=== PATIENT | female | born 1940 | race Caucasian/White ===

== ENCOUNTER 2020-06-02 23:24 | Emergency (ER) | payer MEDICARE, BC, SELFPAY ==
--- NOTE | ~2020-06-02 | XR_ITS ---
EXAMINATION: XR wrist LT 2V EXAM DATE: 06/03/2020 01:15 INDICATION: Postreduction. TECHNIQUE: Frontal and lateral projections of the left wrist. Comparison is made to prior examinatio n from earlier same date. FINDINGS: There is been some interval reduction in the posterior angulation and displacement of the c omminuted left distal radial metaphyseal fracture into joints. Ulnar styloid base avulsion appears un changed. A splint has been applied. IMPRESSION: 1. Status post splinting, partial reduction left distal radial metaphyseal fractures. 2. Ulnar styloid base fracture. Reviewed, dictated and finalized at location A. IMPRESSION: 1. Status post splinting, partial reduction left distal radial metaphyseal fra ctures. 2. Ulnar styloid base fracture.
--- NOTE | ~2020-06-02 | XR_ITS ---
EXAMINATION: XR wrist LT min 3V EXAM DATE: 06/03/2020 00:06 INDICATION: Fall, left wrist pain. TECHNIQUE: Frontal, oblique and lateral projections left wrist. There are no prior studies for claude lopez. FINDINGS: Acute comminuted closed posttraumatic fractures of the left radial distal metaphysis exten ding into the distal radial ulnar and the radiocarpal joint. There is about 40 degrees of posterior a ngulation, and mild posterior displacement. There is acute closed posttraumatic ulnar styloid base av ulsion fracture without appreciable displacement. Carpal bones are unremarkable. IMPRESSION: 1. Left distal radial metaphyseal comminuted fracture into joints. 2. Ulnar styloid base fracture. Reviewed, dictated and finalized at location A.
[2020-06-02 23:26] VITALS: BP 146/98; PULSE 95; RESP 19; TEMP 36.6; O2SAT 100
--- NOTE | 2020-06-02 23:45 | ED.UPPEXIN ---
HPI - Extremity Injury (Upper) General Chief Complaint: Extremity Injury, Upper Stated Complaint: fall Time Seen by Provider: 06/02/20 23:32 History of Present Illness HPI narrative: She was looking up to see a meteor shower when she stepped back and tripped over something. She fell and caught herself on her left hand. She had instant pain and swelling in the left wrist. Limited movement. Sensation in tact. No wounds. No additional pain or injury. She did not strike her head. Related Data Home Medications Medication Instructions Recorded Confirmed ergocalciferol (vitamin D2) PO DAILY 06/03/20 olmesartan-hydrochlorothiazide tablet PO DAILY 06/03/20 simvastatin mg PO DAILY 06/03/20 Allergies Allergy/AdvReac Type Severity Reaction Status Date / Time Sulfa (Sulfonamide Allergy Unknown Itching Verified 06/03/20 00:36 Antibiotics) Review of Systems Review of Systems: All systems reviewed & are unremarkable except as noted in HPI and below PMFSH Family History Family History Other Family history of cardiovascular disease Family history of elevated blood lipids Family history of malignant neoplasm Hypertension Social History Social History Smoking status: Never smoker Alcohol intake: current Gender identity (if verbalized by the patient): Female Exam Const: General: healthy appearing, no acute distress and alert Orientation/consciousness: patient oriented x3 HENMT: Head: normal to inspection Cardio: Other: 2+ left radial pulse. Brisk cappilary refill Skin: General skin exam: normal color Rashes: no rashes Wounds: no wounds Neuro: General: patient oriented x3 and moves all extremities Speech: normal speech Extrem: Other: deformity and swelling of left wrist. Course Vital Signs Vital signs: Vital Signs Temperature 36.6 C 06/02/20 23:26 Pulse Rate 95 06/02/20 23:26 Respiratory Rate 19 06/02/20 23:26 Blood Pressure 146/98 H 06/02/20 23:26 Pulse Oximetry 100 06/02/20 23:26 Temperature 36.6 C 06/02/20 23:26 Pulse Rate 71 06/03/20 02:00 Respiratory Rate 16 06/03/20 02:00 Blood Pressure 137/79 06/03/20 02:00 Pulse Oximetry 98 06/03/20 02:00 Procedures Orthopedic Fracture Reduction Fracture #1: Fracture Reduction date: 06/03/20 Side: left Fracture Reduction Location: radius Analgesia: hematoma block Pre-Procedure Neuro Vascular Exam: normal Technique: direct manipulation Post Reduction X-rays Demonstrate: acceptable reduction Post-reduction neuro exam: intact Post-reduction vascular exam: intact Splint Applied: Yes Patient Tolerated Procedure: well MDM - Extremity Injury (Upper) MDM Narrative Medical decision making narrative: She has comminuted fracture of the distal radius and ulna. Attempted reduction with improved alignment, but still significant shortening. She will need ortho follow-up. Discharge Plan Discharge Clinical Impression: Fracture of wrist, closed Qualifiers: Encounter type: initial encounter Laterality: left Qualified Code(s): S62.102A - Fracture of unspecified carpal bone, left wrist, initial encounter for closed fracture Patient Disposition: Home, Self-Care Condition: Stable Instructions: Wrist Fracture in Adults (ED) Prescriptions: New hydrocodone-acetaminophen [[place]] 5-325 mg tablet 1 tablet PO Q4H PRN (Reason: pain) Qty: 10 RF: 0 No Action simvastatin 20 mg tablet PO DAILY RF: 0 ergocalciferol (vitamin D2) 1,250 mcg (50,000 unit) capsule PO DAILY RF: 0 olmesartan-hydrochlorothiazide 20-12.5 mg tablet PO DAILY RF: 0 Follow-up/Referrals: Jovan Gee MD [Physician] - 1 Week Jorge A,OMAR Torres [Primary Care Provider] - Discharge Date/Time: 06/03/20 02:05
[2020-06-03] MEDS: LIDOCAINE HCL 1% LOCAL INJ 20 ML VIAL 10 ML INFILTRATE (00:34)
[2020-06-03] MEDS: MORPHINE SULFATE 10 MG/ML AMP 4 MG IM (00:46)
[2020-06-03 02:00] VITALS: BP 137/79; PULSE 71; RESP 16; O2SAT 98
== END 2020-06-03 02:05 | disposition home or self-care (01) ==
PROVIDERS: Emergency Provider Emergency Medicine; PCP Nurse Practitioner Adult Health
DX: S59.292A Other physeal fracture of lower end of radius, left arm, initial encounter for closed fracture (principal); S52.612A Displaced fracture of left ulna styloid process, initial encounter for closed fracture; W01.0XXA Fall on same level from slipping, tripping and stumbling without subsequent striking against object, initial encounter
CPT/HCPCS: 25605; 73100; 73110; 96372; 99285; A4565; J2270

== ENCOUNTER 2023-12-20 14:45 | Emergency (ER) | payer MEDICARE, BC, SELFPAY ==
[2023-12-20 14:54] VITALS: BP 141/75; PULSE 94; RESP 16; TEMP 36.7; O2SAT 100
--- NOTE | 2023-12-20 15:52 | ED.FEMALEGU ---
HPI - Female Genitourinary General Chief complaint: Urogenital-Female Stated complaint: UTI SYMPTOMS Time Seen by Provider: 12/20/23 15:29 Source: patient and RN notes reviewed Mode of arrival: ambulatory Limitations: no limitations History of Present Illness HPI Narrative: Patient presents today complaining of a 2 day history of fatigue and pain after urination. Denies hematuria, frequency, urgency, abdominal pain or back pain. She has been using cranberry juice without relief. No history of frequent UTIs. States her last UTI was approximately 20 years ago. Related Data Home Medications Medication Instructions Recorded Confirmed ergocalciferol (vitamin D2) 1,250 1,250 mcg PO DAILY 06/03/20 mcg (50,000 unit) capsule olmesartan 20 1 tablet PO DAILY 06/03/20 12/20/23 mg-hydrochlorothiazide 12.5 mg tablet semaglutide 7 mg tablet (Rybelsus) 7 mg PO DAILY 12/20/23 12/20/23 Allergies Allergy/AdvReac Type Severity Reaction Status Date / Time Sulfa (Sulfonamide Allergy Unknown Itching Verified 12/20/23 15:24 Antibiotics) Review of Systems Review of Systems: CONSTITUTIONAL: Denies body aches, fever, chills, or sweats.+ fatigue EYES: Denies visual changes, redness, or discharge. ENT: Denies rhinorrhea, congestion, sore throat, or otalgia. CARDIOVASCULAR: Denies chest pain, palpitations, or edema. RESPIRATORY: Denies cough or dyspnea. GASTROINTESTINAL: Denies abdominal pain, nausea, vomiting, or diarrhea. GENITOURINARY: Denies dysuria or hematuria.+ pain after urination SKIN: Denies rash, itching, or wounds. MUSCULOSKELETAL: Denies back pain, joint pain, or myalgia. NEUROLOGIC: Denies headache, numbness, tingling, or weakness. PSYCH: Denies depression or anxiety. [facility] Family History Family History Other Family history of cardiovascular disease Family history of elevated blood lipids Family history of malignant neoplasm Hypertension Social History Social History Smoking status: Never smoker Alcohol intake: current Gender identity (if verbalized by the patient): Female Comments At time of signature, I have reviewed and agree with nursing past medical, surgical, social and family history unless otherwise noted. Please see nursing chart for further information. There is no relevant family history pertinent to the presenting complaint Exam Narrative: GENERAL: Well-appearing, well-nourished, and in no acute distress. HEAD: Normocephalic, atraumatic. EYES: EOMI. No redness or drainage. Conjunctivae normal. ENT: Mucous membranes pink and moist. NECK: Normal AROM. CHEST: No respiratory distress. Clear to auscultation. HEART: Regular rate and rhythm. No murmur appreciated. ABDOMEN: Soft, nontender, nondistended, normal active bowel sounds. EXTREMITIES: Normal range of motion. No edema. SKIN: Warm, dry, no rash. Capillary refill normal. Normal skin turgor. NEURO: No focal deficits. Alert and oriented x3. Gait steady. PSYCH: Normal affect. No signs of depression or anxiety. Course Course Level of Care: Express Care Visit Vital Signs Vital signs: Vital Signs Temperature 98.1 F 12/20/23 14:54 Pulse Rate 94 12/20/23 14:54 Respiratory Rate 16 12/20/23 14:54 Blood Pressure 141/75 H 12/20/23 14:54 Pulse Oximetry 100 12/20/23 14:54 Oxygen Delivery Room Air 12/20/23 14:54 Temperature 98.1 F 12/20/23 14:54 Pulse Rate 94 12/20/23 14:54 Respiratory Rate 16 12/20/23 14:54 Blood Pressure 141/75 H 12/20/23 14:54 Pulse Oximetry 100 12/20/23 14:54 Oxygen Delivery Room Air 12/20/23 14:54 Reviewed MDM - Female Genitourinary MDM Narrative Medical decision making narrative: Urinalysis is consistent with UTI. Prescription for Keflex sent to pharmacy. Anticipatory guidance given. Differential Diagnosis Differential d
== END 2023-12-20 15:57 | disposition home or self-care (01) ==
PROVIDERS: Emergency Provider Nurse Practitioner; PCP Nurse Practitioner Adult Health
DX: N30.01 Acute cystitis with hematuria (principal); B96.89 Other specified bacterial agents as the cause of diseases classified elsewhere; I10 Essential (primary) hypertension; E11.9 Type 2 diabetes mellitus without complications
CPT/HCPCS: 81003; 87086; 87181; 99213; G0463

== ENCOUNTER 2024-11-02 14:22 | Emergency (ER) | payer MEDICARE, BC, SELFPAY ==
[2024-11-02 15:47] VITALS: BP 141/76; PULSE 94; RESP 16; TEMP 36.3; O2SAT 98
[2024-11-02 16:19] LABS: EDCOVIDSCREEN Negative (Negative); EDINFLUASCREEN Negative (Negative); EDINFLUBSCREEN Negative (Negative)
--- NOTE | 2024-11-02 16:32 | ED_ITS ---
HPI - URI/Sore Throat General Chief Complaint: Upper Respiratory Infection Stated Complaint: sore throat Time Seen by Provider: 11/02/24 16:22 Source: patient and RN notes reviewed Mode of arrival: ambulatory Limitations: no limitations History of Present Illness HPI Narrative: Patient presents today complaining of a scratchy throat, body aches, fatigue since yesterday. She finished a Z-Charly 3 days ago prescribed for cold symptoms by her PCP. Denies any recent fever, shortness of breath. She leaves on vacation in a couple of days and wants to make sure she does not have a sinus infection or need additional antibiotics. Related Data Home Medications ?Medication ?Instructions ?Recorded ?Confirmed ?Last Taken ?Type ergocalciferol (vitamin D2) 1,250 1,250 mcg PO DAILY 06/03/20 11/02/24 06/02/20 History mcg (50,000 unit) capsule Aspirin [facility] 01/22/24 07/25/24 Unknown History Calcium [facility] 01/22/24 07/25/24 Unknown History Fish Oil [facility] 01/22/24 07/25/24 Unknown History Allergies Allergy/AdvReac Type Severity Reaction Status Date / Time Sulfa (Sulfonamide Allergy Unknown Itching Verified 11/02/24 15:39 Antibiotics) Review of Systems Review of Systems: CONSTITUTIONAL: Denies fever, chills, or sweats.+ body aches, fatigue EYES: Denies visual changes, redness, or discharge. ENT: Denies rhinorrhea, congestion, sore throat, or otalgia.+ scratchy throat CARDIOVASCULAR: Denies chest pain, palpitations, or edema. RESPIRATORY: Denies cough or dyspnea. GASTROINTESTINAL: Denies abdominal pain, nausea, vomiting, or diarrhea. GENITOURINARY: Denies dysuria or hematuria. SKIN: Denies rash, itching, or wounds. MUSCULOSKELETAL: Denies back pain, joint pain, or myalgia. NEUROLOGIC: Denies headache, numbness, tingling, or weakness. PSYCH: Denies depression or anxiety. [facility] Family History Family History Father Heart disease Mother Hypertension Other Family history of cardiovascular disease Family history of elevated blood lipids Family history of malignant neoplasm Social History Social History Smoking status: Never smoker Alcohol intake: current Alcohol use details: Twice a month mixed drink Substance use type: does not use Lack of Transportation: No Lack of Food: Never True Current Housing: I Have Housing Concerned About Future Housing: No Difficulty Paying Gas/Electric Bills: No Difficulty Paying for Meds: No Currently Unemployed: No Education: High School Diploma/GED Living arrangements: with family Gender identity (if verbalized by the patient): Female Agree to blood products: Yes Comments At time of signature, I have reviewed and agree with nursing past medical, surgical, social and family history unless otherwise noted. Please see nursing chart for further information. There is no relevant family history pertinent to the presenting complaint Exam Narrative: GENERAL: Well-appearing, well-nourished, and in no acute distress. HEAD: Normocephalic, atraumatic. EYES: EOMI. No redness or drainage. Conjunctivae normal. ENT: Mucous membranes pink and moist. Nares clear. No rhinorrhea. TMs normal bilaterally. Throat normal. Uvula midline. NECK: Normal AROM. Supple. No lymphadenopathy. CHEST: No respiratory distress. Clear to auscultation. HEART: Regular rate and rhythm. No murmur appreciated. EXTREMITIES: Normal range of motion. No edema. SKIN: Warm, dry, no rash. Capillary refill normal. Normal skin turgor. NEURO: No focal deficits. Alert and oriented x3. Gait steady. PSYCH: Normal affect. No signs of depression or anxiety. Course Course Level of Care: Express Care Visit Vital Signs Vital signs: Vital Signs Temperature 97.4 F L 11/02/24 15:47 Pulse Rate 94 11/02/24 15:47 Respiratory Rate 16 11/02/24 15:47 Blood Pressure 141/76 H 11/02/24 15:47 Pulse Oximetry 98 11/02/24 15:47 Temperature 97.4 F L 11/02/24 15:47 Pulse Rate 94 11/02/24 15:47 Respiratory Rate 16 11/02/24 15:47 Blood Pressure 141/76 H 11/02/24 15:47 Pulse Oximetry 98 11/02/24 15:47 Reviewed MDM - URI/Sore Throat MDM Narrative Medical decision making narrative: Influenza and COVID negative. Symptoms likely viral in etiology. Discussed [id number] medication use and duration of illness. No prescription medications indicated at this time. Anticipatory guidance given. Differential Diagnosis Differential diagnosis: Likely upper respiratory infection, otitis media, sinusitis and viral infection Lab Data Attestation: I reviewed the patient's lab results. Labs: Lab Results 11/02/24 Range/Units 16:18 POC Influenza A Ag Negative (Negative) POC Influenza B Ag Negative (Negative) POC SARS CoV-2 Ag Negative (Negative) Critical Care Time Critical Care Time Critical Care Time: No Discharge Plan Discharge Clinical Impression: Viral infection Patient Disposition: Home, Self-Care Condition: Stable Instructions: Viral Syndrome (ED) Additional Instructions: Your influenza and COVID-19 tests are negative today. Your symptoms are likely due to a viral illness, which is not treated with antibiotics. Virus symptoms can last for up to 7-10days. Take Tylenol for pain or fever. Rest and stay hydrated. Follow up with your PCP in 7-9 days if symptoms are not improving. Go to the ER immediately if you develop shortness of breath, difficulty swallowing, or any other concerning symptoms. Your blood pressure was elevated above 120/80 today at Urgent Care. This puts you above the threshold for follow up. Please schedule a followup visit with your personal physician as soon as possible, for further evaluation and treatment. Even blood pressure exceeding 120/80 may indicate pre-hypertension. Patient Language: Khmer Prescriptions: No Action Aspirin [facility] Rx Instructions: Low dose QD Fish Oil [facility] Rx Instructions: 1000mg QD Calcium [facility] Rx Instructions: 1200mg 2 tablets QD ergocalciferol (vitamin D2) 1,250 mcg (50,000 unit) capsule 1,250 mcg PO DAILY simvastatin 20 mg tablet 20 mg PO DAILY Qty: 90 3RF olmesartan-hydrochlorothiazide 20-12.5 mg tablet See Rx Instructions .ROUTE .COMPLEX Qty: 90 0RF Dose Instruction: TAKE 1 TABLET BY MOUTH EVERY DAY Rx Instructions: TAKE 1 TABLET BY MOUTH EVERY DAY Mounjaro 2.5 mg/0.5 mL pen injector 2.5 mg subcut WEEKLY Qty: 2 1RF Rx Instructions: for 4 weeks Follow-up/Referrals: Melissa Jules APRN [Primary Care Provider] - Time of Disposition: 16:35
== END 2024-11-02 16:38 | disposition home or self-care (01) ==
PROVIDERS: Emergency Provider Nurse Practitioner; PCP Nurse Practitioner Adult Health
DX: B34.9 Viral infection, unspecified (principal); Z20.822 Contact with and (suspected) exposure to COVID-19
CPT/HCPCS: 87426; 87804; 99212; G0463

== ENCOUNTER 2024-11-19 11:26 | Outpatient (CLI) | payer MEDICARE, BC, SELFPAY ==
--- NOTE | ~2024-11-19 | XR_ITS ---
XR abdomen/kub 1V Ordering provider: Melissa Jules APRN History: . R39.9 - Unspecified symptoms and signs involving the jie... . Comparison: None. FINDINGS: BOWEL: Nonobstructive bowel gas pattern. ORGANOMEGALY: None. SIGNIFICANT PATHOLOGIC CALCIFICATIONS: None. OTHER: No free air is seen under the diaphragm. 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 Degenerative changes of the spine. Pubic symphysit is. IMPRESSION: NO ACUTE ABDOMINAL FINDINGS. Reviewed, dictated and finalized at location A. [facility]
[2024-11-19 19:42] LABS: Add Urine Microscopic? YES; Appearance Urine Clear (Clear); Bacteria Urine None Seen /hpf; Bilirubin Urine Negative (Negative); Blood Urine Negative (Negative); Color Urine Yellow (Yellow); Glucose Urine UA 1+ mg/dL (Negative); Ketones Urine Negative (Negative); Leukocyte Esterase Ur 2+ LEU/UL (Negative); Nitrate Urine Negative (Negative); Non Pathogenic Casts 0-2; Protein Urine Negative (Negative); RBC Urine 0-2 /hpf (0-2); Specific Grav Ur 1.013 (1.001-1.035); Squamous Epithelial Cell Urine None Seen /hpf (Few); Urobilinogen Urine 0.2 mg/dL (<2.0); WBC Urine 21-50 /hpf (0-3); pH Urine 6.5 (5.0-9.0)
== END 2024-11-19 11:27 | disposition home or self-care (01) ==
PROVIDERS: PCP Nurse Practitioner Adult Health; Visit Provider Nurse Practitioner Adult Health
DX: R39.9 Unspecified symptoms and signs involving the genitourinary system (principal)
CPT/HCPCS: 74018; 81001; 87086

== ENCOUNTER 2025-06-04 00:12 | Day surgery (SDC) | payer MEDICARE, BC, SELFPAY ==
[2025-05-27 13:27] VITALS: BMI 27.1
--- OUTSIDE RECORDS SUMMARY | 2025-06-04 00:14 | XMS_ITS | Data Portability ---
Author Organization [place] [facility], Main Office Address [address] [place] [address] Care Team Providers Care Sales Manager [place] Name Role Phone ERIN BRAVO Primary Care Provider [phone] ERIN BRAVO Referring Provider [phone] TARYN RAMOS Primary Care Provider [phone] TARYN RAMOS Referring Provider [phone] Assessment Encounter Date Assessment Date Assessment LastModified by Organization Details LastModified Time 05/19/2023 05/19/2023 HPI: 82-year-old female came in today for evaluation of her left lateral hip pain. She has been having symptoms for about 6 months. Her chief complaint is that she has pain in the lateral hip especially when she gets up from a seated position or if she tries lying on left side to sleep at night. When she is up walking flat level ground she is comfortable and has no symptoms well she is doing her normal daily activities. Patient had x-rays done of her left hip by her primary care doctor in June of last year which showed no arthritic changes in the hip. There is no spurring of the greater trochanter. X-rays look very normal. Physical exam: 82-year-old female very alert pleasant. She walks well without limp or Trendelenburg sag. Her left hip flexes to 120 externally rotates to 40 internally rotates to 20 without discomfort. She has moderate tenderness over the trochanteric bursa to palpation. She has good abduction strength in lateral position but pain with strength testing. No edema in lower extremities. 2+ dorsalis pedis pulse. Impression: 82-year-old female who has trochanteric bursitis/lateral hip pain syndrome left hip. His initial management I have recommended a course of formal physical therapy for hip bursitis protocol. I discussed with her that if she does not get satisfactory improvement from that then a cortisone injection into the lateral hip would be reasonable. We will set up therapy and see her back in a month for re-evaluation. If she is doing very well she can call and cancel. If she continues to have symptoms we can try cortisone injection at that time. 20 minutes was spent in treatment patient more than half of this in [id number] conversation [email or web address] Not available 05/19/2023 13:48:46 06/27/2023 06/27/2023 Mammogram due 09/2023. Shingrix from pharmacy Pt to schedule colonoscopy. Has polyps. Not available 06/27/2023 12:23:41 Plan of Treatment Reminders Order Date Submit Date Provider Last Modified By Organization Details Last Modified Time Details Appointments None recorded. Lab BMP, serum or plasma 2022 023 [facility] (Lab), [address] [place], [address], 3 14:12:26 glycohemog lobin, total, blood 2022 023 [facility] (Lab), [address] [place], [address], 3 14:25:43 lipid panel, serum 2022 023 [facility] (Lab), [address] [place], [address], 3 14:12:10 hepatic function panel, serum 2022 023 [facility] (Lab), [address] [place], [address], 14:12:21 Referral None recorded. Procedures None recorded. Surgeries None recorded. Imaging MAMMO, screening, digital, bilateral - *Please call pt tot schedule* 2022 023 [email or web address] Not available 12/27/202 3 08:58:50 Medication Orders None recorded. Patient TargetsNo targets recorded. Patient Instructions Encounter Date Encounter Id Patient Instructions Last Modified By Organization Details Last Modified Time 06/27/2023 [id number] Fu in 4 mo for check up htn, lipid, dm, osteoarthritis. Not available 06/27/2023 10:16:41 Reason for Referral None Reported. Results Created Date Observation Date Name Description Value Unit Range Abnormal Flag Note LastModifiedBy Organization Detail LastModifiedTime 02/16/2002/15/2023 urina lysis , dipst ick Leukocytes (reference range: negative otilia/ l) Negati ve Not Available [address], [address], 02/14/2023 12:10:45 02/16/2002/15/2023 urina lysis , dipst ick Nitrite (reference rage: negative mg/dl) negati ve Not Available [address], [address], 02/14/2023 12:10:45 02/16/2002/15/2023 urina lysis , dipst ick Urobilinogen (reference range: 0.2-1 mg/dl) 0.2 Not Available [address], [address], 02/14/2023 12:10:45 02/16/20 23 02/15/2023 urina lysis , dipst ick Protein (reference range: negative mg/dl) Negati ve Not Available [address], [address], 02/14/2023 12:10:45 02/16/20 23 02/15/2023 urina lysis , dipst ick pH (reference range: 5-7) 5.0 Not Available [address], [address], 02/14/2023 12:10:45 02/16/20 23 02/15/2023 urina lysis , dipst ick Blood (reference range: negative Elmer/ l) Negati ve Not Available [address], [address], 02/14/2023 12:10:45 02/16/20 23 02/15/2023 urina lysis , dipst ick Specific Hayden (reference range: 1.005-1.030) 1.015 Not Available [address], [address], 02/14/2023 12:10:45 02/16/20 23 02/15/2023 urina lysis , dipst ick Ketone (reference range: negative mg/dl) Negati ve Not Available [address], [address], 02/14/2023 12:10:45 02/16/20 23 02/15/2023 urina lysis , dipst ick Bilirubin (reference range: negative mg/dl) Negati ve Not Available [address], [address], 02/14/2023 12:10:45 02/16/20 23 02/15/2023 urina lysis , dipst ick Glucose (reference range: negative mg/dl) 2000+ Not Available [address], [address], 02/14/2023 12:10:45 02/16/20 23 02/15/2023 urina lysis , dipst ick Appearance Clear Not Available [address], [address], 02/14/2023 12:10:45 02/16/2002/15/2023 urina lysis , dipst ick Color Yellow Not Available formerly [facility] [address] [place] [address], [place], [address], 02/14/2023 12:10:45 02/25/20 23 02/24/2023 BASIC METAB OLIC PANEL sodium 138 mmol/ L 137-14 5 Not Available [facility] (Lab) [address] [place], [address], 02/24/2023 14:51:00 02/25/2002/24/2023 BASIC METAB OLIC PANEL potassium 4.4 mmol/ L 3.5-5. 1 Not Available [facility] (Lab) [address] [place], [address], 02/24/2023 14:51:00 02/25/20 23 02/24/2023 BASIC METAB OLIC PANEL chloride 99 mmol/ L 98-107 Not Available [facility] (Lab) [address] [place], [address], 02/24/2023 14:51:00 02/25/20 23 02/24/2023 BASIC METAB OLIC PANEL carbon dioxide 29 mmol/ L 22-30 Not Available [facility] (Lab) [address] [place], [address], 02/24/2023 14:51:00 02/25/20 23 02/24/2023 BASIC METAB OLIC PANEL anion gap 14.4 mmol/ L 14-22 Not Available [facility] (Lab) [address] [place], [address], 02/24/2023 14:51:00 02/25/20 23 02/24/2023 BASIC METAB OLIC PANEL glucose 151 mg/dL 70-99 high Not Available [facility] (Lab) [address] [place], [address], 02/24/2023 14:51:00 02/25/20 23 02/24/2023 BASIC METAB OLIC PANEL BUN 23 mg/dL 8-19 high Not Available [facility] (Lab) [address] [place], [address], 02/24/2023 14:51:00 02/25/20 23 02/24/2023 BASIC METAB OLIC PANEL creatinine 0.83 mg/dL 0.66-1 .25 Not Available [facility] (Lab) [address] [place], [address], 02/24/2023 14:51:00 02/25/20 23 02/24/2023 BASIC METAB OLIC PANEL GFR >60 Refer ence Range : [place] ge GFR Healt hy Adult : >60 mL/mi n/1.7 3 m2 Chron ic Kidne y Disea se: 15-60 mL/mi n/1.7 3 m2 Kidne y Failu re: <15/m L/min /1.73 m2 www.n iddk. nih.g ov The MDRD study equat ion has not been valid ated in child juvenal <18 years of age; pregn ant women ; the elder ly >85 years of age; or in some racia l or ethni c subgr oups, such as Tino nics. Outsi de the valid ated dianna eters , estim ated GFR is less accur ate, requi ring clini klever judgm ent on a case- by-ca se basis . Clini klever inter preta tion for other races and ages must be made by the clini eron. The MDRD study equat ion has not been valid ated for the evalu ation of serum creat inine relat ed to nutri lily l statu s or medic ation usage . For perso ns <18 years of age, a pedia tric GFR calcu lator is avail able on the [facility] websi te: https :[email or web address] palacios.o rg/pr ofess ional s/kdo qi/gf r_cal culat or Not Available [facility] (Lab) [address] [place], [address], 02/24/2023 14:51:00 02/25/20 23 02/24/2023 BASIC METAB OLIC PANEL calcium 10.0 mg/dL 8.4-10 .2 Not Available [facility] (Lab) [address] [place], [address], 02/24/2023 14:51:00 02/25/20 23 02/24/2023 HEPAT IC/LI ALESHA PANEL alkaline phosphatase 80 U/L 38-126 Not Available [facility] (Lab) [address] [place], [address], 02/24/2023 14:51:10 02/25/20 23 02/24/2023 HEPAT IC/LI ALESHA PANEL alanine aminotransfe rase 27 U/L 0-35 Not Available [facility] (Lab) [address] [place], [address], 02/24/2023 14:51:10 02/25/20 23 02/24/2023 HEPAT IC/LI ALESHA PANEL aspartate aminotransfe rase 30 U/L 15-37 Not Available [facility] (Lab) [address] [place], [address], 02/24/2023 14:51:10 02/25/20 23 02/24/2023 HEPAT IC/LI ALESHA PANEL bilirubin, total 1.10 mg/dL 0.20-1 .30 Not Available [facility] (Lab) [address] [place], [address], 02/24/2023 14:51:10 02/25/20 23 02/24/2023 HEPAT IC/LI ALESHA PANEL bilirubin, conjugated (direct) 0.00 mg/dL 0.00-0 .30 Not Available [facility] (Lab) [address] [place], [address], 02/24/2023 14:51:10 02/25/20 23 02/24/2023 HEPAT IC/LI ALESHA PANEL biliurubin,u ncong. (indirect) 0.60 mg/dL 0.00-1 .1 Not Available [facility] (Lab) [address] [place], [address], 02/24/2023 14:51:10 02/25/20 23 02/24/2023 HEPAT IC/LI ALESHA PANEL total protein 7.9 g/dL 6.3-8. 2 Not Available [facility] (Lab) [address] [place], [address], 02/24/2023 14:51:10 02/25/20 23 02/24/2023 HEPAT IC/LI ALESHA PANEL albumin 4.8 g/dL 3.0-4. 4 high Not Available [facility] (Lab) [address] [place], [address], 02/24/2023 14:51:10 02/25/20 23 02/24/2023 HEPAT IC/LI ALESHA PANEL globulin 3.1 g/dL 2.6-4. 2 Not Available [facility] (Lab) [address] [place], [address], 02/24/2023 14:51:10 02/25/20 23 02/24/2023 HEPAT IC/LI ALESHA PANEL A/G ratio 1.5 ratio 1.0-2. 0 Not Available [facility] (Lab) [address] [place], [address], 02/24/2023 14:51:10 02/25/20 23 02/24/2023 TEST NOT PERFO RMED test not performed SEE COMMEN T HA1C NOT PERFO RMED NO EDTA TUBE RECIE MINISTERIO. ISHMAEL Rosas COLLE CT A L AVEND ER TOP EDTA TUBE. IONOI ZED CALCI UM NOT PERFO RMED. ISHMAEL Rosas SEND A SEPRA TE SERUM TUBE AND LABEL IT DOO NOT OPEN Not Available [facility] (Lab) [address] [place], [address], 02/24/2023 21:06:04 03/02/20 23 03/02/2023 HEMOG LOBIN A1C HA1C 8.0 % 4.0-6. 0 high Diabe sahil Rhiannone virgil Crite shira: <5.7% Consi stent with absen ce of diabe sahil 5.7-6 .4% Consi stent with incre ased risk for diabe sahil (pred iabet es) >OR=6 .5% Consi stent with diabe sahil REFER ENCE: Diabe sahil Care 2016, 39(Wilkes ppl.1 ):s13 -s22 Not Available [facility] (Lab) [address] [place], [address], 03/02/2023 14:55:10 07/04/2007/04/2023 LIPID PANEL cholesterol 199 mg/dL 140-19 9 NIH CARLOS NSUS RECOM MENDA TION FOR MISSY STERO L: ADULT CHILD LOW RISK: <200 <170 BORDE RLINE : <200- 239 ----- HIGH RISK: >240 >200 Not Available [facility] (Lab) [address] [place], [address], 07/04/2023 14:12:10 07/04/2007/04/2023 LIPID PANEL triglyceride s 280 mg/dL 0-150 high NIH CARLOS NSUS REPOR T RECOM MENDA TION FOR TRIGL YCERI SARAH: ADULT CHILD LOW RISK: <150 ----- BODER LINE: 150-1 99 ----- HIGH RISK: >200 ----- Not Available [facility] (Lab) [address] [place], [address], 07/04/2023 14:12:10 07/04/2007/04/2023 LIPID PANEL HDL cholesterol 35 mg/dL 40- low Not Available [facility] (Lab) [address] [place], [address], 07/04/2023 14:12:10 07/04/2007/04/2023 LIPID PANEL LDL cholesterol, calculated 108 mg/dL 0-130 NIH CARLOS NSUS REPOR T RECOM MENDA TIONS FOR LDL: ADULT CHILD LOW RISK <130 <110 (OPTI MAL LDL) <100 ----- BORDE RLINE : 130-1 59 ----- HIGH RISK: >160 >130 A TRIGL YCERI DE RESUL T >400 INVAL IDATE S THE CALCU LATIO N FOR LDL FRACT IONAT ION - THE LDL RESUL T WILL NOT BE REPOR VALERIA. Not Available [facility] (Lab) [address] [place], [address], 07/04/2023 14:12:10 07/04/20 23 07/04/2023 HEPAT IC/LI ALESHA PANEL alkaline phosphatase 78 U/L 38-126 Not Available [facility] (Lab) [address] [place], [address], 07/04/2023 14:12:21 07/04/20 23 07/04/2023 HEPAT IC/LI ALESHA PANEL alanine aminotransfe rase 30 U/L 0-35 Not Available [facility] (Lab) [address] [place], [address], 07/04/2023 14:12:21 07/04/20 23 07/04/2023 HEPAT IC/LI ALESHA PANEL aspartate aminotransfe rase 28 U/L 15-37 Not Available [facility] (Lab) [address] [place], [address], 07/04/2023 14:12:21 07/04/20 23 07/04/2023 HEPAT IC/LI ALESHA PANEL bilirubin, total 0.90 mg/dL 0.20-1 .30 Not Available [facility] (Lab) [address] [place], [address], 07/04/2023 14:12:21 07/04/20 23 07/04/2023 HEPAT IC/LI ALESHA PANEL bilirubin, conjugated (direct) 0.00 mg/dL 0.00-0 .30 Not Available [facility] (Lab) [address] [place], [address], 07/04/2023 14:12:21 07/04/20 23 07/04/2023 HEPAT IC/LI ALESHA PANEL biliurubin,u ncong. (indirect) 0.70 mg/dL 0.00-1 .1 Not Available [facility] (Lab) [address] [place], [address], 07/04/2023 14:12:21 07/04/20 23 07/04/2023 HEPAT IC/LI ALESHA PANEL total protein 7.3 g/dL 6.3-8. 2 Not Available [facility] (Lab) [address] [place], [address], 07/04/2023 14:12:21 07/04/20 23 07/04/2023 HEPAT IC/LI ALESHA PANEL albumin 4.4 g/dL 3.0-4. 4 Not Available [facility] (Lab) [address] [place], [address], 07/04/2023 14:12:21 07/04/20 23 07/04/2023 HEPAT IC/LI ALESHA PANEL globulin 2.9 g/dL 2.6-4. 2 Not Available [facility] (Lab) [address] [place], [address], 07/04/2023 14:12:21 07/04/20 23 07/04/2023 HEPAT IC/LI ALESHA PANEL A/G ratio 1.5 ratio 1.0-2. 0 Not Available [facility] (Lab) [address] [place], [address], 07/04/2023 14:12:21 07/04/20 23 07/04/2023 BASIC METAB OLIC PANEL sodium 137 mmol/ L 137-14 5 Not Available [facility] (Lab) [address] [place], [address], 07/04/2023 14:12:25 07/04/20 23 07/04/2023 BASIC METAB OLIC PANEL potassium 4.0 mmol/ L 3.5-5. 1 Not Available [facility] (Lab) [address] [place], [address], 07/04/2023 14:12:25 07/04/20 23 07/04/2023 BASIC METAB OLIC PANEL chloride 99 mmol/ L 98-107 Not Available [facility] (Lab) [address] [place], [address], 07/04/2023 14:12:25 07/04/20 23 07/04/2023 BASIC METAB OLIC PANEL carbon dioxide 30 mmol/ L 22-30 Not Available [facility] (Lab) [address] [place], [address], 07/04/2023 14:12:25 07/04/20 23 07/04/2023 BASIC METAB OLIC PANEL anion gap 12.0 mmol/ L 14-22 low Not Available [facility] (Lab) [address] [place], [address], 07/04/2023 14:12:25 07/04/20 23 07/04/2023 BASIC METAB OLIC PANEL glucose 154 mg/dL 70-99 high Not Available [facility] (Lab) [address] [place], [address], 07/04/2023 14:12:25 07/04/20 23 07/04/2023 BASIC METAB OLIC PANEL BUN 22 mg/dL 8-19 high Not Available [facility] (Lab) [address] [place], [address], 07/04/2023 14:12:25 07/04/20 23 07/04/2023 BASIC METAB OLIC PANEL creatinine 0.70 mg/dL 0.66-1 .25 Not Available [facility] (Lab) [address] [place], [address], 07/04/2023 14:12:25 07/04/20 23 07/04/2023 BASIC METAB OLIC PANEL GFR >60 Refer ence Range : [place] ge GFR Healt hy Adult : >60 mL/mi n/1.7 3 m2 Chron ic Kidne y Disea se: 15-60 mL/mi n/1.7 3 m2 Kidne y Failu re: <15/m L/min /1.73 m2 www.n iddk. nih.g ov The MDRD study equat ion has not been valid ated in child juvenal <18 years of age; pregn ant women ; the elder ly >85 years of age; or in some racia l or ethni c subgr oups, such as Hispa nics. Outsi de the valid ated dianna eters , estim ated GFR is less accur ate, requi ring clini klever judgm ent on a case- by-ca se basis . Clini klever inter preta tion for other races and ages must be made by the clini eron. The MDRD study equat ion has not been valid ated for the evalu ation of serum creat inine relat ed to nutri lily l statu s or medic ation usage . For perso ns <18 years of age, a pedia tric GFR calcu lator is avail able on the [facility] websi te: https :[email or web address] w.ghazal palacios.o patty/pr huberess ional s/kdo qi/gf r_cal culat or Not Available [facility] (Lab) [address] [place], [address], 07/04/2023 14:12:25 07/04/2007/04/2023 BASIC METAB OLIC PANEL calcium 9.4 mg/dL 8.4-10 .2 Not Available [facility] (Lab) [address] [place], [address], 07/04/2023 14:12:25 07/04/20 23 07/04/2023 HEMOG LOBIN A1C HA1C 8.4 % 4.0-6. 0 high Diabe sahil Scree virgil Crite shira: <5.7% Consi stent with absen ce of diabe sahil 5.7-6 .4% Consi stent with incre ased risk for diabe sahil (pred iabet es) >OR=6 .5% Consi stent with diabe sahil REFER ENCE: Diabe sahil Care 2016, 39(Wilkes ppl.1 ):s13 -s22 Not Available [facility] (Lab) [address] [place], [address], 07/04/2023 14:25:43 08/14/20 24 08/14/2024 MICRO ALBUM N RNDM W/CRE AT RATIO ur creat 68.50 mg/dL REFER ENCE RANGE NOT ESTAB LISHE D FOR RANDO M URINE CREAT ININE Not Available [facility] (Lab) [address] [place], [address], 08/14/2024 15:15:09 08/14/20 24 08/14/2024 MICRO ALBUM N RNDM W/CRE AT RATIO microalbumin , urine 26.6 mg/L 0.0-16 .6 high Not Available [facility] (Lab) [address] [place], [address], 08/14/2024 15:15:09 08/14/20 24 08/14/2024 MICRO ALBUM N RNDM W/CRE AT RATIO microalbumin /creatinine ratio 39 mcg/m g 0-29 high THE AMERI CAN DIABE SAHIL ASSOC IATIO N DEFIN ES ABNOR MALIT IES IN ALBUM IN EXCRE TION FOLLO WS: CATEG ORY RESUL T (MCG/ MG CREAT ININE ) EDWARD L <30 MICRO ALBUM INURI A 30-29 9 CLINI KLEVER ALBUM INURI A > OR = 300 THE ADA RECOM MENDS THAT 2 OF 2 SPECI MENS COLLE CTED WITHI N A 3- TO 6-MON TH PERIO D BE ABNOR MAL BEFOR E CONSI LEE G A PATIE NT TO HAVE CROSS ED ONE OF THESE DIAGN OSTIC THRES HOLDS . REFER ENCE: DIABE SAHIL CARE, VOL. 26: S94-S , 2002 Not Available [facility] (Lab) [address] [place], [address], 08/14/2024 15:15:09 08/14/2008/14/2024 COMPR EHENS REZA METAB OLIC PANEL sodium 135 mmol/ L 137-14 5 low Not Available [facility] (Lab) [address] [place], [address], 08/14/2024 15:15:08 08/14/2008/14/2024 COMPR EHENS REZA METAB OLIC PANEL potassium 4.3 mmol/ L 3.5-5. 1 Not Available [facility] (Lab) [address] [place], [address], 08/14/2024 15:15:08 08/14/2008/14/2024 COMPR EHENS REZA METAB OLIC PANEL chloride 97 mmol/ L 98-107 low Not Available [facility] (Lab) [address] [place], [address], 08/14/2024 15:15:08 08/14/2008/14/2024 COMPR EHENS REZA METAB OLIC PANEL carbon dioxide 28 mmol/ L 22-30 Not Available [facility] (Lab) [address] [place], [address], 08/14/2024 15:15:08 08/14/2008/14/2024 COMPR EHENS REZA METAB OLIC PANEL anion gap 14.3 mmol/ L 14-22 Not Available [facility] (Lab) [address] [place], [address], 08/14/2024 15:15:08 08/14/2008/14/2024 COMPR EHENS REZA METAB OLIC PANEL glucose 155 mg/dL 70-99 high Not Available [facility] (Lab) [address] [place], [address], 08/14/2024 15:15:08 08/14/2029 0808/14/2024 COMPR EHENS REZA METAB OLIC PANEL BUN 17 mg/dL 8-19 Not Available [facility] (Lab) [address] [place], [address], 08/14/2024 15:15:08 08/14/20 24 08/14/2024 COMPR EHENS REZA METAB OLIC PANEL creatinine 0.83 mg/dL 0.66-1 .25 Not Available [facility] (Lab) [address] [place], [address], 08/14/2024 15:15:08 08/14/20 24 08/14/2024 COMPR EHENS REZA METAB OLIC PANEL GFR >60 Refer ence Range : [place] ge GFR Healt hy Adult : >60 mL/mi n/1.7 3 m2 Chron ic Kidne y Disea se: 15-60 mL/mi n/1.7 3 m2 Kidne y Failu re: <15/m L/min /1.73 m2 www.n iddk. nih.g ov The MDRD study equat ion has not been valid ated in child juvenal <18 years of age; pregn ant women ; the elder ly >85 years of age; or in some racia l or ethni c subgr oups, such as wy nics. Outsi de the valid ated dianna eters , estim ated GFR is less accur ate, requi ring clini klever judgm ent on a case- by-ca se basis . Clini klever inter preta tion for other races and ages must be made by the clini eron. The MDRD study equat ion has not been valid ated for the evalu ation of serum creat inine relat ed to nutri lily l statu s or medic ation usage . For perso ns <18 years of age, a pedia tric GFR calcu lator is avail able on the [facility] websi te: https ://alejandra palacios.o rg/pr ofess ional s/kdo qi/gf r_cal culat or Not Available [facility] (Lab) [address] [place], [address], 08/14/2024 15:15:08 08/14/20 24 08/14/2024 COMPR EHENS REZA METAB OLIC PANEL alkaline phosphatase 79 U/L 38-126 Not Available [facility] (Lab) [address] [place], [address], 08/14/2024 15:15:08 08/14/20 24 08/14/2024 COMPR EHENS REZA METAB OLIC PANEL alanine aminotransfe rase 29 U/L 0-35 Not Available [facility] (Lab) [address] [place], [address], 08/14/2024 15:15:08 08/14/2008/14/2024 COMPR EHENS REZA METAB OLIC PANEL aspartate aminotransfe rase 28 U/L 15-37 Not Available [facility] (Lab) [address] [place], [address], 08/14/2024 15:15:08 08/14/20 24 08/14/2024 COMPR EHENS REZA METAB OLIC PANEL bilirubin, total 0.90 mg/dL 0.20-1 .30 Not Available [facility] (Lab) [address] [place], [address], 08/14/2024 15:15:08 08/14/2008/14/2024 COMPR EHENS REZA METAB OLIC PANEL calcium 10.1 mg/dL 8.4-10 .2 Not Available [facility] (Lab) [address] [place], [address], 08/14/2024 15:15:08 08/14/2008/14/2024 COMPR EHENS REZA METAB OLIC PANEL total protein 7.0 g/dL 6.3-8. 2 Not Available [facility] (Lab) [address] [place], [address], 08/14/2024 15:15:08 08/14/20 24 08/14/2024 COMPR EHENS REZA METAB OLIC PANEL albumin 4.4 g/dL 3.0-4. 4 Not Available [facility] (Lab) [address] [place], [address], 08/14/2024 15:15:08 08/14/20 24 08/14/2024 COMPR EHENS REZA METAB OLIC PANEL globulin 2.6 g/dL 2.6-4. 2 Not Available [facility] (Lab) [address] [place], [address], 08/14/2024 15:15:08 08/14/20 24 08/14/2024 COMPR EHENS REZA METAB OLIC PANEL A/G ratio 1.7 ratio 1.0-2. 0 Not Available [facility] (Lab) [address] [place], [address], 08/14/2024 15:15:08 08/14/20 24 08/14/2024 VITAM IN D 25-HY DROXY [id number] 31.3 NG/mL 30-100 Vitam in D Statu s: Defic ient: <20 ng/mL Insuf ficie nt: 20-29 ng/mL Suffi cient : 30-10 0 ng/mL Not Available [facility] (Lab) [address] [place], [address], 08/14/2024 15:15:10 08/14/20 24 08/14/2024 HEMOG LOBIN A1C HA1C 8.1 % 4.0-6. 0 high Diabe sahil Scree virgil Crite shira: <5.7% Consi stent with absen ce of diabe sahil 5.7-6 .4% Consi stent with incre ased risk for diabe sahil (pred iabet es) >OR=6 .5% Consi stent with diabe sahil REFER ENCE: Diabe sahil Care 2016, 39(Wilkes ppl.1 ):s13 -s22 Not Available [facility] (Lab) [address] [place], [address], 08/14/2024 15:15:10 Result Notes None recorded. Problems Name Problem SNOMED Code Status Onset Date Resolution Date Notes Provider Name and Address Organization Details Recorded Time Acute bronchiti s 69813281 Completed Not Available [facility] 3 04:50:12 Bronchiti s [id number] Completed Not Available [facility] 3 04:50:13 Vitamin D deficienc y 34152889 Active Not Available [facility] 3 04:50:13 Chronic sinusitis 77974185 Completed Not Available [facility] 3 04:50:13 Mitral valve prolapse 534706031 Active Not Available [facility] 3 04:50:13 Type 2 diabetes mellitus 55161604 Active Not Available [facility] 3 04:50:13 Hyperlipi demia 66039848 Active Not Available [facility] 3 04:50:13 Essential hypertens ion 77886149 Active Not Available [facility] 3 04:50:13 Inversion of nipple 56655183 Active Not Available [facility] 3 04:50:13 Closed fracture of right wrist [id number] 537797 Active 2019 Not Available [facility] 3 04:50:12 Osteoarth ritis 012314993 Active 2021 Not Available [facility] 3 04:50:13 History of polyp of colon 061250121 Active 2022 Erin Bravo NP [address] [place] [address] [address], [place], [address] , [facility] [employer] [facility] 3 10:54:11 Dysuria 86524785 Active 2022 Erin Bravo NP [address] [place] [address] [address], [place], [address] , [facility] [employer] [facility] 3 12:10:40 Pain of left hip joint 44828532870 9100 Active 2022 JILLIAN Cruz, [facility] [employer] [facility] 3 11:05:29 Problem Notes Documentation Provider Name and Address Organization Details Recorded Time Orthopedic Surgeon Consult Note : [facility] [address] [address]UIDYLNJWLS, Carol L (id #[id number], : 1940) Documents sent via fax will include the following message: This fax may contain sensitive and confidential personal health information that is being sent for the sole use of the intended recipient. Unintended recipients are directed to securely destroy any materials received. You are hereby notified that the unauthorized disclosure or other unlawful use of this fax or any personal health information is prohibited. To the extent patient information contained in this fax is subject to 42 CFR Part 2, this regulation prohibits unauthorized disclosure of these records. If you received this fax in error, please visit [email or web address] to notify the sender and confirm that the information will be destroyed. If you do not have internet access, please call to notify the sender and confirm that the information will be destroyed. Thank you for your attention and cooperation. [ID:[id number]] , Date: 05/19/2023RE: [facility], I would like to thank you for referring Ayaka Moreau to me for consultation and evaluation of Left hip pain , on 05/19/2023. I have enclosed a copy of the office assessment and plan for your records. Once again, thank you for allowing me to participate in the care of this patient. Sincerely, Electronically Signed by: RALPH JONES, [facility] Assessment/PlanHPI: 82-year-old female came in today for evaluation of her left lateral hip pain. She has been having symptoms for about 6 months. Her chief complaint is that she has pain in the lateral hip especially when she gets up from a seated position or if she tries lying on left side to sleep at night. When she is up walking flat level ground she is comfortable and has no symptoms well she is doing her normal daily activities.Patient had x-rays done of her left hip by her primary care doctor in June of last year which showed no arthritic changes in the hip. There is no spurring of the greater trochanter. X-rays look very normal. Physical exam: 82-year-old female very alert pleasant. She walks well without limp or Trendelenburg sag. Her left hip flexes to 120 externally rotates to 40 internally rotates to 20 without discomfort. She has moderate tenderness over the trochanteric bursa to palpation. She has good abduction strength in lateral position but pain with strength testing. No edema in lower extremities. 2+ dorsalis pedis pulse. Impression: 82-year-old female who has trochanteric bursitis/lateral hip pain syndrome left hip. His initial management I have recommended a course of formal physical therapy for hip bursitis protocol. I discussed with her that if she does not get satisfactory improvement from that then a cortisone injection into the lateral hip would be reasonable. We will set up therapy and see her back in a month for re-evaluation. If she is doing very well she can call and cancel. If she continues to have symptoms we can try cortisone injection at that time. 20 minutes was spent in treatment patient more than half of this in [id number] conversation 1. Pain of left hip [id number]: Pain in left hip Return to Office Erin Bravo NP for Follow Up 15 at [facility] [place] on 06/06/2023 at 09:30 AM Jovan Gee MD for Any 5 at [facility] [place] on 06/28/2023 at 09:25 AM Erin Bravo NP [address], [address] [address], [place], [address], [employer] [email or web address] 05/21/2023 22:52:40 Procedures Surgical History Date Name Laterality Status Provider Name and Address Organization Details Recorded Time Tonsillectomy completed Not Available [facility] 01/04/2023 04:41:40 Colonoscopy completed Erin rosas NP [address], [place], [address], [facility] [employer] [email or web address] 02/14/2023 10:53:07 Imaging Results None recorded. Procedure Notes None recorded. Medical Equipment None Reported. Allergies Allergen ID Allergen Name Allergen Category Reaction Reaction Severity Criticality Documentation Date Start Date Code Code System Note Provider Name and Address Organization Details Recorded Time 8658 Substance with sulfonami de structure and antibacte rial mechanism of action (substanc e) medicatio n itching Not available Not available 01/04/2023 62227 8003 SNOMED Not Available [facility] 3 05:06:04 Medications Name Sig Start Date Stop Date Status Note LastModified by Organization Details LastModified Time amoxicillin 500 mg capsule TAKE 1 CAPSULE BY MOUTH THREE TIMES DAILY UNTIL ALL TAKEN 05/19 completed Not Available Not Available Not Available metformin 500 mg tablet TAKE 1 TABLET BY MOUTH TWICE DAILY active Not Available Not Available No t Available erythromyci n 500 mg tablet 08/15 completed Not Available Not Available Not Available atorvastati n 10 mg tablet 1tab po nightly 06/13 completed Not Available Not Available Not Available lisinopril 20 mg-hydrochl orothiazide 12.5 mg tablet Take 1 tablet(s) every day by oral route for 90 days. 05/18 completed Not Available Not Available Not Available azithromyci n 250 mg tablet TAKE 2 TABLETS (500 MG) BY ORAL ROUTE ONCE DAILY FOR 1 DAY THEN 1 TABLET (250 MG) BY ORAL ROUTE ONCE DAILY FOR 4 DAYS 01/09 completed Not Available Not Available Not Available ofloxacin 0.3 % eye drops INSTILL 1 DROP INTO AFFECTED EYE(S) BY OPHTHALMI C ROUTE 4 TIMES PER DAY active Not Available Not Available No t Available hydrocodone 5 mg-acetamin ophen 325 mg tablet TK 1 T PO Q 4 H PRN active Not Available Not Available No t Available metronidazo le 500 mg tablet TK 1 T PO TID FOR 10 DAYS 06/04 completed Not Available Not Available Not Available ciprofloxac in 500 mg tablet TK 1 T PO Q 12 H FOR 10 DAYS 06/04 completed Not Available Not Available Not Available tramadol 50 mg tablet 06/04 completed Not Available Not Available Not Available amoxicillin 500 mg tablet TAKE 1 TABLET THREE TIMES DAILY 02/14 completed Not Available Not Available Not Available potassium chloride ER 20 mEq tablet,exte nded release(par t/cryst) 06/04 completed Not Available Not Available Not Available OneTouch Ultra Test strips Take 1 strip every day by miscell. route. active Not Available Not Available No t Available benzonatate 100 mg capsule 01/09 completed Not Available Not Available Not Available simvastatin 20 mg tablet TAKE 1 TABLET BY MOUTH EVERY NIGHT AT BEDTIME active Not Available Not Available No t Available lisinopril 10 mg tablet active Not Available Not Available Not Available ergocalcife rol (vitamin D2) 1,250 mcg (50,000 unit) capsule TAKE 1 CAPSULE BY MOUTH 1 TIME A WEEK 02/14 completed Not Available Not Available Not Available Aspir-81 mg tablet,leonie yed release Take 1 tablet every day by oral route for 90 days. 06/13 completed Not Available Not Available Not Available cefprozil 250 mg tablet Take 1 tablet every 12 hours by oral route. active Not Available Not Available No t Available neomycin 500 mg tablet 08/15 completed Not Available Not Available Not Available losartan 50 mg-hydrochl orothiazide 12.5 mg tablet TAKE 1 TABLET BY MOUTH EVERY DAY 05/27 completed Not Available Not Available Not Available dexamethaso ne 1.5 mg tablet 03/29 completed Not Available Not Available Not Available celecoxib 100 mg capsule Take 1 capsule twice a day by oral route as needed for 30 days. 02/14 completed Not Available Not Available Not Available amoxicillin 875 mg-potassiu m clavulanate 125 mg tablet 01/09 completed Not Available Not Available Not Available Fish Oil 500 mg capsule Take 2 capsules every day by oral route. 2014 active Not Available Not Available Not Avai lable Vitamin D3 25 mcg (1,000 unit) tablet Take 1 tablet twice a day by oral route. 06/04 completed Not Available Not Available Not Available olmesartan 20 mg-hydrochl orothiazide 12.5 mg tablet TAKE 1 TABLET BY MOUTH EVERY DAY active Not Available Not Available No t Available OneTouch UltraSoft Lancets 06/04 completed Not Available Not Available Not Available Calcium 600 2 PO BID 2014 active Not Available Not Available Not Avai lable Aspir-81 2019 active Not Available Not Available Not Avai lable lidocaine (PF) 10 mg/mL (1 %) injection solution In office injection administe red by the provider 12/14 completed [facility]: 0409- 4276- 17 Not Available Not Available Not Available peg 3350 240 gram-electr olytes 22.72 gram-6.72 g-5.84 g powdr for soln 01/16 completed Not Available Not Available Not Available olmesartan 20 mg-amlodipi ne 5 mg-hydrochl orothiazide 12.5 mg tablet Take 1 tablet every day by oral route. 05/27 completed Not Available Not Available Not Available Fluvirin 5823-2692 45 mcg (15 mcg x 3)/0.5 mL intramuscul ar suspension active Not Available Not Available N ot Available OneTouch Delica Lancets 30 gauge USE TO TEST QD 06/04 completed Not Available Not Available Not Available Virtussin AC 10 mg-100 mg/5 mL oral liquid TK 10 ML PO Q 4 H PRN 01/09 completed Not Available Not Available Not Available Fluzone High-Dose 2013- (PF) 180 mcg/0.5 mL intramuscul ar syringe INJECT 0.5 ML INTRAMUSC ULARLY DIRECTED. 11/12 completed Not Available Not Available Not Available Jardiance 10 mg tablet TAKE 1 TABLET BY MOUTH EVERY DAY 09/27 completed Not Available Not Available Not Available Jardiance 25 mg tablet TAKE 1 TABLET BY MOUTH EVERY DAY active Not Available Not Available No t Available Fluzone High-Dose 2014- (PF) 180 mcg/0.5 mL intramuscul ar syringe active Not Available Not Available N ot Available Fluzone High-Dose 7221-9994 (PF) 180 mcg/0.5 mL intramuscul ar syringe ADM 0.5ML IM UTD active Not Available Not Available No t Available Fluzone High-Dose 1338-6296 (PF) 180 mcg/0.5 mL intramuscul ar syringe active Not Available Not Available N ot Available OneTouch Ultra Blue Test Strip USE TO TEST ONCE DAILY active Not Available Not Available No t Available Fluad 2017- 65yr up(PF)45 mcg(15 mcgx3)/0.5 mL intramuscul ar syringe active Not Available Not Available N ot Available Fluzone High-Dose (PF) 180 mcg/0.5 mL intramuscul ar syringe active Not Available Not Available N ot Available Rybelsus 7 mg tablet 1 tab po daily 2022 active Not Available Not Available Not Avai lable Rybelsus 3 mg tablet TAKE 1 TABLET BY MOUTH EVERY DAY 09/19 completed Not Available Not Available Not Available Mounjaro 5 mg/0.5 mL subcutaneou s pen injector Inject by subcutane ous route for 28 days. active Not Available Not Available No t Available Mounjaro 2.5 mg/0.5 mL subcutaneou s pen injector active Not Available Not Available Not Available Vitals Date Recorded Body height Provider Name an d Address Organization Details Last Updated DateTime 02/24/2023 157.48 cm Erin Garcia RN [facility] 02/24/2023 10:52:33 Date Recorded Body height Provider Name an d Address Organization Details Last Updated DateTime 03/02/2023 157.48 cm Mickie Cummins MA [facility] 03/02/2023 12:27:52 Date Recorded Body height Body mass index (BMI) Body weight Provider Name and Address Organization Details Last Updated DateTime 05/19/2023 154.94 cm 29.5 kg/m2 69189.41 g JILLIAN Cruz [facility] 05/19/2023 11:57:22 Date Recorded Body height Body mass index (BMI) Body weight Body temperature Heart rate Respiratory rate Oxygen saturation Oxygen saturation in Arterial blood by Pulse oximetry Pain severity - 0-10 verbal numeric rating [Score] - Reported Systolic And Diastolic Provider Name and Address Organization Details Last Updated DateTime 3 154.94 cm 30.1 kg/m2 07744.2 4 g 96.9 [degF] 90 /min 16 /min 97 % 97 % 0 148/78 mm[Hg] Erin Garcia RN [facility] 3 11:58:26 Social History Question Answer Notes LastModified by Organization Details LastModified Time Tobacco Smoking Status Never Smoker Kristan [email or web address] [place] [employer] [facility] 05/19/2023 10:44:28 Do You Have An Advance Directive? No [id number] Information not available 01/04/2023 Are You Blind Or Do You Have Difficulty Seeing? No [email or web address] Information not available 05/19/2023 Is Blood Transfusion Acceptable In An Emergency? Yes [email or web address] Information not available 05/19/2023 What Is Your Level Of Caffeine Consumption? Occasional [id number] Information not available 01/04/2023 How Much Tobacco Do You Chew? None [id number] Information not available 01/04/2023 In The 14 Days Before Symptom Onset, Have You Had Close Contact With A Laboratory-confi rmed COVID-19 While That Case Was Ill? No [email or web address] Information not available 05/19/2023 In The 14 Days Before Symptom Onset, Have You Had Close Contact With A Person Who Is Under Investigation For COVID-19 While That Person Was Ill? No [email or web address] Information not available 05/19/2023 Are You Deaf Or Do You Have Serious Difficulty Hearing? No [email or web address] Information not available 05/19/2023 What Type Of Diet Are You Following? REGULAR [id number] Information not available 01/04/2023 Which Illicit Or Recreational Drugs Have You Used? None [email or web address] Information not available 05/19/2023 What Is The Highest Grade Or Level Of School You Have Completed Or The Highest Degree You Have Received? [id number] Information not available 05/19/2023 How Many Days Of Moderate To Strenuous Exercise, Like A Brisk Walk, Did You Do In The Last 7 Days? 2 [email or web address] Information not available 05/19/2023 On Those Days That You Engage In Moderate To Strenuous Exercise, How Many Minutes, On Average, Do You Exercise? 30 [email or web address] Information not available 05/19/2023 Have There Been Any Changes To Your Family Or Social Situation? No [email or web address] Information not available 05/19/2023 Do You Use Insect Repellent Routinely? Yes [email or web address] Information not available 05/19/2023 Where Do You Live? [place] [email or web address] Information not available 05/19/2023 Do You Have A Medical Power Of Sheriffs Officer? Yes - Chance Information not available 05/19/2023 Have You Ever Been Counseled For Unhealthy Alcohol Use? No Information not available 05/19/2023 Do You Have Any Pets? No Information not available 05/19/2023 What Is Your Relationship Status? [email or web address] Information not available 02/14/2023 Do You Use Your Seat Belt Or Car Seat Routinely? Yes [email or web address] Information not available 05/19/2023 Do You Have Smoke And Carbon Monoxide Detectors In Your Home? Yes Information not available 05/19/2023 Are You Passively Exposed To Smoke? No [email or web address] Information not available 05/19/2023 Are There Any Smokers In Your House? No [email or web address] Information not available 05/19/2023 Do You Participate In Social Media? No [email or web address] Information not available 05/19/2023 What Types Of Sporting Activities Do You Participate In? Walking, Stationary Bike [email or web address] Information not available 05/19/2023 Do You Use Sunscreen Routinely? Yes Information not available 05/19/2023 Has Tobacco Cessation Counseling Been Provided? No Information not available 05/19/2023 Have You Recently Traveled Abroad? No [email or web address] Information not available 05/19/2023 Do You Have Difficulty Walking Or Climbing Stairs? No [email or web address] Information not available 05/19/2023 Do You Have Any Dietary Restrictions? No Information not available 05/19/2023 Sex: Unknown Functional Status Question Answer Note LastModified by [employer] ion Details LastModified Time Do you use any illicit or recreational drugs? No [email or web address] Information not available 05/19/2023 Do you or have you ever used any other forms of tobacco or nicotine? No [email or web address] Information not available 05/19/2023 What is your level of alcohol consumption? Occasional [id number] Information not available 01/04/2023 Do you have transportation difficulties? No Information not available 05/19/2023 Are you able to walk? [email or web address] Information not available 05/19/2023 Do you have difficulty doing errands alone? No [email or web address] Information not available 05/19/2023 Are you able to care for yourself independently? 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 No [email or web address] Information not available 05/19/2023 What is your exercise level? Occasional [id number] Information not available 01/04/2023 Mental Status Question Answer Note LastModified by Organizat ion Details LastModified Time Do you feel stressed (tense, restless, nervous, or anxious, or unable to sleep at night)? [id number] [email or web address] Information not available 05/19/2023 Do you have difficulty concentrating, remembering or making decisions? No Information no t available 05/19/2023 Family History Relationship Description Onset Age of this Age Resolved Age Notes LastModified by Organization Details LastModified Time Father Cerebrovascu lar accident [email or web address] Not available 11:46:05 Father Hypertensive disorder [id number] Not available 01/04/2023 04:41:44 Father Heart disease [id number] Not available 01/04/2023 04:41:44 Medical History Condition Response ARTHRITIS Y DIABETES, TYPE Y OTHER # 1 Y HIGH CHOLESTEROL / HYPERLIPIDEMIA Y HYPOTENSION Y PNEUMONIA Y BRONCHITIS Y Gynecological History Statement/Question Response If Post Menopausal, Age at Menopause 54 Date of Last Pap Smear Date of Last Colonoscopy Most Recent Mammogram Most Recent Bone Density Obstetrics History GPAL:G 0 P 0 0 0 0 Immunizations Vaccine Type Date Status Note Provider Nam e and Address Organization Details Recorded Time COVID-19, mRNA, LNP-S, PF, 30 mcg/0.3 mL dose 1 completed Not Available [facility] 01/04/2023 05:05:26 COVID-19, mRNA, LNP-S, PF, 30 mcg/0.3 mL dose 1 completed Not Available [facility] 01/04/2023 05:05:27 Influenza, split virus, quadrivalent, preservative 9 completed Not Available [facility] 01/04/2023 05:05:27 Pneumococcal conjugate PCV 13 9 completed Not Available [facility] 01/04/2023 05:05:27 Influenza, high-dose, trivalent, PF 6 completed Not Available [facility] 01/04/2023 05:05:27 Influenza, split virus, trivalent, preservative 5 completed Not Available [facility] 01/04/2023 05:05:27 Influenza, split virus, trivalent, preservative 4 completed Not Available [facility] 01/04/2023 05:05:27 Influenza, high-dose, trivalent, PF 4 completed Not Available [facility] 01/04/2023 05:05:28 Influenza, split virus, trivalent, preservative 3 completed Not Available [facility] 01/04/2023 05:05:28 Influenza, split virus, trivalent, preservative 2 completed Not Available [facility] 01/04/2023 05:05:28 zoster live 2 completed Not Available [facility] 01/04/2023 05:05:28 Tdap 9 completed Not Available [facility] 01/04/2023 05:05:28 pneumococcal polysaccharide PPV23 9 completed Not Available [facility] 01/04/2023 05:05:28 Influenza, high-dose, quadrivalent, PF 1 completed Not Available [facility] 01/04/2023 05:05:29 Influenza, high-dose, quadrivalent, PF 0 completed Not Available [facility] 01/04/2023 05:05:29 Pneumococcal conjugate PCV 13 9 completed Not Available [facility] 01/04/2023 05:05:29 Past Encounters Encounter ID Performer Location Encounter Start Date Encounter Closed Date Diagnosis/Indication Diagnosis SNOMED-CT Code Diagnosis ICD10 Code Diagnosis Note [id number] [facility] D[place] [facility] [place] [address] [address] 03/29/2021 00:00:00 03/29/2021 14:11:35 [id number] Shea Ahn MD [facility] [place] [address] [place] [address] 07/29/2021 00:00:00 07/29/2021 12:53:53 [id number] Shea Ahn MD [facility] [place] [address] [place] [address] 02/16/2022 00:00:00 02/16/2022 14:00:24 [id number] S_[facility] [place] [address] [place] [address] 06/14/2022 00:00:00 06/14/2022 13:38:59 [id number] Shea Ahn MD [address] [place] [address] 09/27/2022 00:00:00 09/27/2022 15:20:28 [id number] Erin Bravo NP [address] [place] [id number] 02/14/2023 10:10:01 02/14/2023 11:18:02 Essential hypertension 03682501 I10 Olmesartan 20 gm - hctz 12. 5 mg po daily.<2 gm sodium diet.Stephenson valeria 02/14/23. Pt will check at home and call if still > 150/100 Hyperlipidemia 89429888 E78.5 Fish oilSimvast atin 20 mg po daily. Mitral valve prolapse 40 6972067 I34.1 States she no longer has MVP as of 2021.Diagn osed in 1985. Type 2 vivien betes mellitus 11547735 E11.9 Jardiance 25 mg po daily. Needs PA through insurance for March 2023. Osteoarthritis 140470211 M19.90 Stable. Left hip pain, xray 06/2022 with moderate osteoarthr itis. Vitamin D deficiency 347 60914 E55.9 History of polyp of colon 468789394 Z86.010 Lobito. Last 2017 and polyps, resection and removal of colon. Referred to Gi, Dr. Robin patient. Dysuria 97374745 R30.0 urinalysis [id number] Erin Bravo NP [address] [address] 02/24/2023 08:40:03 02/24/2023 10:53:32 [id number] Erin Bravo NP [facility] [address] [address] 03/02/2023 08:39:35 03/02/2023 12:31:26 [id number] Jovan Gee MD [facility] Ortho [facility]ita [place] [address] [place] [address] 05/19/2023 10:43:14 05/19/2023 14:08:44 Pain of left hip joint 3280267758 58410 M25.552 [id number] Erin Bravo NP [address] [address] 06/27/2023 11:45:14 06/27/2023 12:37:51 Essential hypertension 81095656 I10 Olmesartan 20 gm - hctz 12. 5 mg po daily.<2 gm sodium diet.Stephenson valeria 02/14/23. Pt will check at home and call if still > 150/100 Hyperlipidemia 58510136 E78.5 Fish oilSimvast atin 20 mg po daily. Mitral valve prolapse 40 7058465 I34.1 States she no longer has MVP as of 2021.Diagn osed in 1985. Type 2 vivien betes mellitus 02310198 E11.9 Jardiance 25 mg po daily. Needs PA through insurance for March 2023. Osteoarthritis 814969396 M19.90 Stable. Left hip pain, xray 06/2022 with moderate osteoarthr itis. Vitamin D deficiency 347 39966 E55.9 vit d 5000 IU po daily History of polyp of colon 131601348 Z86.010 Lobito. Last 2017 and polyps, resection and removal of colon. Referred to Gi, Dr. Robin patient. Pt aware to schedule. Screening for malignant neoplasm of breast 768638798 Z12.39 Mammogram due after 09/27/23 [id number] Erin Bravo NP [facility]_86 [address] [id number] 07/04/2023 08:32:03 07/04/2023 09:06:02 Health Concerns Section Related Observation LastModified by Organization Detai ls LastModified Time None Recorded Concern Status LastModified by Organization Details LastModified Time None Recorded Advance Directives Directive N: Payers Insurance Date Sequence Insurance Name Policy Number Policy Meyers Covered Member ID Meyers Member ID Guarantor Name 09/11/2023 1 [place] Ayaka Moreau [id number] Ayaka Moreau 09/11/2023 2 [place] [address] [id number] Ayaka Moreau 06/24/2023 [employer] - DMEPOS ASSIGNED (MEDICARE DME REGION B) Ayaka Moreau [id number] Ayaka Moreau 06/21/2023 [employer] - DMEPOS ASSIGNED (MEDICARE DME REGION B) Ayaka Moreau [id number] Ayaka Moreau OBGyn Episode No OBEpisode recorded.
[2025-06-04 06:24] VITALS: BP 150/64; PULSE 100; RESP 16; TEMP 36.4; O2SAT 99; BMI 26.6
[2025-06-04] MEDS: LACTATED RINGERS 1,000 ML 150 ML IV CONT (06:41)
--- NOTE | 2025-06-04 07:22 | WPDANESEPPF ---
Anes - Initial Pre Proc Eval Procedure: Operation Date: 06/04/25 07:30 Proposed Procedures p Screening Colonoscopy - Alistair Carranza MD Date/Time: 06/04/25 07:22 Surgeon: Alistair Carranza MD Pre Op Diagnosis: neoplasm screening Patient Data Age: 84 Gender: F Height: 1.57 m Weight: 66 kg Last Vital Signs Temp 97.6 F 06/04/25 06:24 Pulse 100 06/04/25 06:24 Resp 16 06/04/25 06:24 BP 150/64 H 06/04/25 06:24 Pulse Ox 99 06/04/25 06:24 O2 Del Method Room Air 06/04/25 06:24 Allergies Allergy/AdvReac Type Severity Reaction Status Date / Time Sulfa (Sulfonamide Allergy Unknown Itching Verified 06/04/25 06:22 Antibiotics) Home Medications ?Medication ?Instructions ?Recorded ?Confirmed ?Type ergocalciferol (vitamin D2) 1,250 1,250 mcg PO DAILY 06/03/20 06/04/25 History mcg (50,000 unit) capsule Aspirin 81 mg BYMOUTH DAILY 01/22/24 06/04/25 History Calcium 1,200 mg BYMOUTH DAILY 01/22/24 06/04/25 History Fish Oil 1 cap BYMOUTH DAILY 01/22/24 06/04/25 History simvastatin 20 mg tablet 20 mg PO DAILY #90 tabs 04/29/24 06/04/25 Rx olmesartan 20 See Rx Instructions .Route 02/05/25 06/04/25 Rx mg-hydrochlorothiazide 12.5 mg .COMPLEX #90 tabs tablet tirzepatide 5 mg/0.5 mL See Rx Instructions .Route 03/11/25 06/04/25 Rx subcutaneous pen injector .COMPLEX #4 mL (Mounjaro) Patient hx anesthesia problems: none Family hx anesthesia problems: none Results Review: All pre-operative results and documents have been reviewed as part of the pre-operative evaluation. [facility] Family History Family History Father Heart disease Mother Hypertension Other Family history of cardiovascular disease Family history of elevated blood lipids Family history of malignant neoplasm Social History Social History Smoking status: Never smoker Alcohol intake: current Alcohol use details: Socially Substance use type: does not use Lack of Transportation: No Lack of Food: Never True Current Housing: I Have Housing Concerned About Future Housing: No Difficulty Paying Gas/Electric Bills: No Difficulty Paying for Meds: No Currently Unemployed: No Education: High School Diploma/GED Living arrangements: with family Additional living arrangements comments: with sp Gender identity (if verbalized by the patient): Female Agree to blood products: Yes Anes - Eval Final PreProcedure Day of Procedure 06/04/25 07:22 Patient weight: normal Heart: regular rate and rhythm Lungs: clear to auscultation Airway: Mallampati scale class II Neurological: alert and oriented Last oral intake: >/= 8 hours ASA classification: III Emergent: no Anesthetic plan: proceed Anesthesia type and monitoring: general GIVS and standard monitoring Results Review: All pre-operative results and documents have been reviewed as part of the pre-operative evaluation. Informed Consent: The patient's anesthetic plan and its attendant risks and benefits were discussed with the patient/family/POA. Questions were solicited and answers provided to the satisfaction of the patient/family/POA.
--- NOTE | 2025-06-04 07:29 | PM.HPGS ---
History of Present Illness History of Present Illness Consent: Risks, benefits, and alternatives have been discussed and questions answered. Patient agrees to proceed with procedure. Chief complaint: neoplasm screening Narrative: Ayaka Moreau is a 84 year old female with colon polyps Review of Systems Review of Systems: All systems reviewed & are unremarkable except as noted in HPI and below PMFSH Past Medical History Medical History (Updated 06/04/25 @ 07:30 by Alistair Carranza MD) Colon polyp Family History Family History Father Heart disease Mother Hypertension Other Family history of cardiovascular disease Family history of elevated blood lipids Family history of malignant neoplasm Social History Social History Smoking status: Never smoker Alcohol intake: current Alcohol use details: Socially Substance use type: does not use Lack of Transportation: No Lack of Food: Never True Current Housing: I Have Housing Concerned About Future Housing: No Difficulty Paying Gas/Electric Bills: No Difficulty Paying for Meds: No Currently Unemployed: No Education: High School Diploma/GED Living arrangements: with family Additional living arrangements comments: with sp Gender identity (if verbalized by the patient): Female Agree to blood products: Yes Meds Home Medications and Allergies Home Medications ?Medication ?Instructions ?Recorded ?Confirmed ?Type ergocalciferol (vitamin D2) 1,250 1,250 mcg PO DAILY 06/03/20 06/04/25 History mcg (50,000 unit) capsule Aspirin 81 mg BYMOUTH DAILY 01/22/24 06/04/25 History Calcium 1,200 mg BYMOUTH DAILY 01/22/24 06/04/25 History Fish Oil 1 cap BYMOUTH DAILY 01/22/24 06/04/25 History simvastatin 20 mg tablet 20 mg PO DAILY #90 tabs 04/29/24 06/04/25 Rx olmesartan 20 See Rx Instructions .Route 02/05/25 06/04/25 Rx mg-hydrochlorothiazide 12.5 mg .COMPLEX #90 tabs tablet tirzepatide 5 mg/0.5 mL See Rx Instructions .Route 03/11/25 06/04/25 Rx subcutaneous pen injector .COMPLEX #4 mL (Mounjaro) Allergies Allergy/AdvReac Type Severity Reaction Status Date / Time Sulfa (Sulfonamide Allergy Unknown Itching Verified 06/04/25 06:22 Antibiotics) Vital Signs Vital Signs - 24 hr 06/04/25 06:24 Temperature 97.6 F Pulse Rate 100 Respiratory Rate 16 Blood Pressure 150/64 H Pulse Oximetry 99 Oxygen Delivery Room Air Exam Const: General: comfortable and no acute distress HENMT: Face/Nose/Sinus: Normal nares present Eyes: General: appearance normal, both eyes and all related structures Neck: Neck: no JVD Resp: Auscultation: clear to auscultation bilaterally Cardio: Rate: regular rate Rhythm: regular rhythm GI: Inspection: non-distended GI Palp: Yes Soft to palpation Skin: General skin exam: normal color Neuro: Speech: normal speech Extrem: General: normal to inspection Psych: Mental Status: mental status grossly normal Assessment and Plan Assessment and plan (1) Colon polyp: Code(s): K63.5 - Polyp of colon Status: Acute Assessment and Plan: colonoscopy
--- NOTE | 2025-06-04 07:45 | S_PTH ---
PATIENT: Ayaka Moreau LOC: [facility]#:[id number] AGE/SX: 84/F ROOM: RE06/04/[address]: Alistair Carranza MD : 1940 BED: DIS: 06/04/2025 SPEC #: [id number] RECD: 06/04/25 10:54 STATUS: HEMANT REPedro #: [id number] [place]: 06/04/25 07:[address]: Alistair Carranza DEPT: [facility] Surgical RECD BY: Gay Devine ENTERED: 06/04/25 10:55 SP TYPE: Surgical OTHR DR: Melissa Jules APRN Tissues: A - Colon Polypectomy Procedures: Hematoxylin and Eosin Stain Gross and Microscopic Level 4
[2025-06-04 07:50] VITALS: BP 89/55; PULSE 73; RESP 22; O2SAT 100
[2025-06-04 08:00] VITALS: BP 92/52; PULSE 85; RESP 22; O2SAT 100
[2025-06-04 08:10] VITALS: BP 118/57; PULSE 77; RESP 24; O2SAT 100
== END 2025-06-04 08:17 | disposition home or self-care (01) ==
PROVIDERS: PCP Nurse Practitioner Adult Health; Referring Provider Nurse Practitioner Adult Health; Visit Provider Internal Medicine Gastroenterology
PROC: 0DJD8ZZ Inspection of Lower Intestinal Tract, Via Natural or Artificial Opening Endoscopic (ICD-10-PCS; CPT 45378; principal; 2025-06-04 07:30)
DX: Z12.11 Encounter for screening for malignant neoplasm of colon (principal); D12.2 Benign neoplasm of ascending colon; K64.8 Other hemorrhoids; K57.30 Diverticulosis of large intestine without perforation or abscess without bleeding; Z79.82 Long term (current) use of aspirin; Z79.85 Long-term (current) use of injectable non-insulin antidiabetic drugs; Z98.0 Intestinal bypass and anastomosis status; Z90.49 Acquired absence of other specified parts of digestive tract; Z80.9 Family history of malignant neoplasm, unspecified; Z82.49 Family history of ischemic heart disease and other diseases of the circulatory system
CPT/HCPCS: 45385; 82948; 88305; J2003; J2704; J7120